=== PATIENT | female | born 1945 | race Caucasian/White ===

== ENCOUNTER → 2023-11-02 10:23 | Outpatient (REF) | payer SELFPAY | LOC: HWRAD 10:23 | PROVIDERS: ATTENDING PHYSICIAN Student in an Organized Health Care Education/Training Program | DX: E78.00 Pure hypercholesterolemia, unspecified (principal) | CPT/HCPCS: 75571 ==

== ENCOUNTER → 2024-01-20 13:16 | Outpatient (REF) | payer MEDICARE, SELFPAY | LOC: WDC 13:16 | PROVIDERS: ATTENDING PHYSICIAN Physician Assistant | DX: N64.4 Mastodynia (principal) | CPT/HCPCS: 77062; 77066 ==

== ENCOUNTER → 2024-04-29 10:54 | Outpatient (REF) | payer MEDICARE, SELFPAY | LOC: HWRAD 10:54 | PROVIDERS: ATTENDING PHYSICIAN Student in an Organized Health Care Education/Training Program | DX: N95.1 Menopausal and female climacteric states (principal) | CPT/HCPCS: 77080 ==

== ENCOUNTER → 2024-11-16 10:15 | Outpatient (REF) | payer MEDICARE, SELFPAY | LOC: RCS 10:15 | PROVIDERS: ATTENDING PHYSICIAN Student in an Organized Health Care Education/Training Program | DX: R06.09 Other forms of dyspnea (principal) | CPT/HCPCS: 93017 ==

== ENCOUNTER → 2025-03-15 14:14 | Outpatient (REF) | payer MEDICARE, SELFPAY | LOC: WDC 14:14 | PROVIDERS: ATTENDING PHYSICIAN Student in an Organized Health Care Education/Training Program | DX: Z12.31 Encounter for screening mammogram for malignant neoplasm of breast (principal) | CPT/HCPCS: 77063; 77067 ==